=== PATIENT | male | born 1975 | race American Indian/Alaskan Native ===

== ENCOUNTER 2020-11-15 23:48 | Emergency (ER) | payer OTHER ==
[2020-11-16 00:56] VITALS: BP 177/73
--- NOTE | 2020-11-16 01:13 | Emergency Department Report ---
ED General Adult HPI - General Chief complaint: Skin/Abscess/Foreign Body Stated complaint: BUSTED BOIL ON CHEST Time Seen by Provider: 11/16/20 01:07 Source: patient Mode of arrival: Ambulatory Limitations: No Limitations - History of Present Illness Initial comments: Patient 45-year-old male with type 2 diabetes who presents status post abscess rupture to left lateral chest wall breast. This is 3:00 to the nipple line. Patient states he has been evaluated by general surgery he has had mammogram ultrasound and x-ray of same approximately 1 year ago, there is no sign for CA he has been advised that mass with resolved on its own however he states it ruptured and started to drain purulent discharge during showering tonight. Patient does state pain is resolved since rupture pain pressure is relieved. Patient has primary care doctor at [facility] and also general surgeon who has been following this case. There is no fever, chills no nausea no vomiting. No chest pain or shortness of breath. Severity scale (0 -10): 0 - Related Data Previous Rx's Medication Instructions Recorded Last Taken Type Clindamycin [Clindamycin CAP] 300 mg PO Q8H 7 Days #21 cap 11/16/20 Unknown Rx traMADoL [Ultram] 50 mg PO Q6HR PRN #12 tablet 11/16/20 Unknown Rx Allergies Allergy/AdvReac Type Severity Reaction Status Date / Time No Known Allergies Allergy Unverified 11/16/20 00:53 ED Review of Systems ROS: Stated complaint: BUSTED BOIL ON CHEST Other details as noted in HPI Constitutional: denies: chills, fever Eyes: denies: eye pain, eye discharge, vision change ENT: denies: ear pain, throat pain Respiratory: denies: cough, shortness of breath, wheezing Cardiovascular: other (cyst left anterior chest wall ). denies: chest pain, palpitations Endocrine: no symptoms reported Gastrointestinal: denies: abdominal pain, nausea, vomiting, diarrhea Genitourinary: denies: urgency, dysuria Musculoskeletal: denies: back pain, joint swelling, arthralgia Skin: other (cyst left lateral anterior chest wall ). denies: rash Neurological: denies: headache, weakness, paresthesias Psychiatric: denies: anxiety, depression Hematological/Lymphatic: denies: easy bleeding, easy bruising ED Past Medical Hx - Past Medical History Previous Medical History?: No - Surgical History Past Surgical History?: Yes Additional Surgical History: left forearm - Medications Home Medications: Home Medications Medication Instructions Recorded Confirmed Last Taken Type Clindamycin [Clindamycin CAP] 300 mg PO Q8H 7 Days #21 cap 11/16/20 Unknown Rx traMADoL [Ultram] 50 mg PO Q6HR PRN #12 tablet 11/16/20 Unknown Rx ED Physical Exam - General Limitations: No Limitations General appearance: alert, in no apparent distress - Head Head exam: Present: atraumatic, normocephalic - Eye Eye exam: Present: normal appearance, EOMI Pupils: Present: normal accommodation - ENT ENT exam: Present: mucous membranes moist - Neck Neck exam: Present: normal inspection, tenderness, full ROM. Absent: lymphadenopathy - Respiratory Respiratory exam: Present: normal lung sounds bilaterally, chest wall tenderness (cyst 2x4 inches draining blood brown drainage , no fever, mild erythema ). Absent: respiratory distress, wheezes, stridor - Cardiovascular Cardiovascular Exam: Present: regular rate, normal rhythm, normal heart sounds. Absent: systolic murmur, diastolic murmur, rubs, gallop - GI/Abdominal GI/Abdominal exam: Present: soft, normal bowel sounds. Absent: distended, tenderness - Rectal Rectal exam: Present: deferred - Extremities Exam Extremities exam: Present: normal inspection - Back Exam Back exam: Present: normal inspection, full ROM. Absent: tenderness - Neurological Exam Neurological exam: Present: alert, oriented X3, CN II-XII intact, normal gait - Psychiatric Psychiatric exam: Present: normal affect, normal mood - Skin Skin exam: Present: warm, dry, intact, normal color, other (cyst chest wall as above ). Absent: rash ED Course Vital Signs 11/16/20 00:55 Pulse Rate 79 Respiratory 16 Rate Blood Pressure 177/73 [Left] O2 Sat by Pulse 100 Oximetry ED Medical Decision Making - Medical Decision Making This is an infected cyst to the left anterior chest wall, mild drainage wound care completed 4 x 4 dressing applied. Patient given wound care instructions. Plan DC to home with antibiotics, follow-up with general surgery, there is no fever, chills there is no nausea or vomiting. There is no nipple tenderness no axillary lymph or tenderness, there are no other lesions. Patient verbalized agreement and understanding with discharge plan. Patient will be DC'd home in stable condition at this time. Critical care attestation.: If time is entered above; I have spent that time in minutes in the direct care of this critically ill patient, excluding procedure time. ED Disposition Clinical Impression: Infected cyst of skin, Chest wall abscess Disposition: HOME / SELF CARE / HOMELESS Is pt being admited?: No Does the pt Need Aspirin: No Condition: Stable Instructions: Skin Abscess Additional Instructions: Wash site with soap and water daily, use 4 x 4 dressing as directed, take medi cations as prescribed, follow-up with general surgery and primary care as directed. Prescriptions: Clindamycin [Clindamycin CAP] 300 mg PO Q8H 7 Days #21 cap traMADoL [Ultram] 50 mg PO Q6HR PRN #12 tablet PRN Reason: Pain Referrals: EDER PABLO MD [Staff Physician] - 3-5 Days Forms: Work/School Release Form(ED) Time of Disposition: 01:17
== END 2020-11-16 01:46 | disposition home or self-care (01) ==
LOC: ED 23:48
DX: L72.9 Follicular cyst of the skin and subcutaneous tissue, unspecified (principal); L02.213 Cutaneous abscess of chest wall; E11.8 Type 2 diabetes mellitus with unspecified complications
CPT/HCPCS: 99282